=== PATIENT | male | born 1970 | race Caucasian/White ===

== ENCOUNTER 2016-07-17 17:55 | Emergency (ER) | payer OTHER ==
[~2016-07-17] VITALS: Ht 177.8 cm; Wt 143.9 kg
[~2016-07-17 17:55] MED LIST: CELEBREX200 MG PO; DIAMOX SEQUELS500 MG PO; ERGOCALCIF50000 UNIT PO; FLEXERIL10 MG PO; LEVO-T50 MCG PO; NEXIUM40 MG PO; PERCOCET 7.51 TABLET PO; PHENTERMINE H37.5 MG PO; TESTOSTERO100 MG/11 IM; VITAMIN D250000 UNIT PO
[2016-07-17 19:07] LABS: HEMATOCRIT 42.8 % (38.0-50.0); MCH 29.2 PG (29.0-34.0); MCHC 34.8 G/DL (30.0-36.0); MCV 83.8 FL (86-99); MEAN PLAT.VOLUME 9.8 uM^3 (9.0-12.4); PLATELET COUNT 263 K/uL (156-360); RBC DIS.WIDTH-CV 12.9 % (11.8-14.6); RBC DIS.WIDTH-SD 38.3 % (39-53); RED BLOOD COUNT 5.11 M/uL (4.00-5.50); WHITE BLOOD COUNT 11.7 K/uL (4.1-10.2)
[2016-07-17 19:17] LABS: CHLORIDE 109 mEq/L (99-109); POTASSIUM 3.8 mEq/L (3.7-5.4); SODIUM 140 mEq/L (136-147)
[2016-07-17 19:19] LABS: GLUCOSE 99 mg/dL (70-99)
[2016-07-17 19:20] LABS: ANION GAP 10 MEQ/L (2-14)
[2016-07-17 19:21] LABS: TOTAL BILIRUBIN 0.3 mg/dL (0.0-1.0)
[2016-07-17 19:23] LABS: ALKALINE PHOSPHATASE 94 IU/L (3-129); GFR ESTIMATE (CALCULATED) > 59 mL/min/
[2016-07-17 19:24] LABS: UREA NITROGEN (BUN) 21 mg/dL (9-23)
[2016-07-17 20:54] LABS: ADD MIUA? NO; BILIRUBIN NEGATIVE; BLOOD NEGATIVE; COLOR YELLOW ((YELLOW)); GLUCOSE (STRIP) NEGATIVE; KETONES NEGATIVE; LEUKOCYTES NEGATIVE; NITRITE NEGATIVE; PROTEIN (STRIP) NEGATIVE; SPECIFIC GRAVITY 1.031 (1.000-1.030); UCUL ADDED? NO; UROBILINOGEN 0.2 MG/DL (0.2-1.0)
[2016-07-17] MEDS ORDERED: ZOFRAN ODT4 MG PO (23:55)
[2016-07-18 00:23] VITALS: BP 126/70
== END 2016-07-18 00:24 | disposition home or self-care (01) ==
LOC: EME 17:55 → RME 17:55
DX: K42.9 Umbilical hernia without obstruction or gangrene (principal); R10.9 Unspecified abdominal pain; R11.2 Nausea with vomiting, unspecified; R19.4 Change in bowel habit; K40.20 Bilateral inguinal hernia, without obstruction or gangrene, not specified as recurrent
CPT/HCPCS: 74177; 80053; 81003; 85027; 99281; 99285; J2270; J2405; J7030

== ENCOUNTER 2017-06-25 22:02 | Observation (INO) | payer OTHER ==
[~2017-06-25] VITALS: Ht 177.8 cm; Wt 135.6 kg
[~2017-06-25 22:02] MED LIST changes: +ZOFRAN ODT4 MG PO
[2017-06-25 23:12] LABS: HEMATOCRIT 40.2 % (38.0-50.0); MCH 29.8 PG (29.0-34.0); MCHC 34.8 G/DL (30.0-36.0); MCV 85.5 FL (86-99); PLATELET COUNT 210 K/uL (156-360); RBC DIS.WIDTH-SD 37.7 % (39-53)
[2017-06-25 23:21] LABS: ALBUMIN 3.7 g/dL (3.2-4.8); CHLORIDE 110 mEq/L (99-109); POTASSIUM 3.8 mEq/L (3.7-5.4); SODIUM 136 mEq/L (136-147)
[2017-06-25 23:23] LABS: GLUCOSE 111 mg/dL (70-99); TOTAL PROTEIN 7.3 g/dL (6.4-8.3)
[2017-06-25 23:25] LABS: TOTAL BILIRUBIN 0.4 mg/dL (0.0-1.0)
[2017-06-25 23:27] LABS: ALKALINE PHOSPHATASE 95 IU/L (3-129); CREATININE 1.4 mg/dL (0.6-1.3); GFR ESTIMATE (CALCULATED) 59 mL/min/ (58.99-99999)
[2017-06-25 23:28] LABS: UREA NITROGEN (BUN) 21 mg/dL (9-23)
[2017-06-25 23:29] LABS: AST (GOT) 21 IU/L (2-34)
[2017-06-25 23:30] LABS: ALT (GPT) 27 IU/L (3-49); LIPASE 13 U/L (1.0-51.0)
[2017-06-25 23:57] LABS: APPEARANCE CLEAR ((CLEAR)); BILIRUBIN NEGATIVE; BLOOD MODERATE; COLOR YELLOW ((YELLOW)); GLUCOSE (STRIP) NEGATIVE; KETONES NEGATIVE; LEUKOCYTES NEGATIVE; NITRITE NEGATIVE; PROTEIN (STRIP) NEGATIVE; SPECIFIC GRAVITY 1.014 (1.000-1.030); UROBILINOGEN 0.2 MG/DL (0.2-1.0)
[2017-06-26 00:08] LABS: UCUL ADDED? NO
[2017-06-26] MEDS ORDERED: ZOFRAN4 MG PO (00:17)
[2017-06-26] MEDS ORDERED: PERCOCET 5/31 TABLET PO (00:17)
[2017-06-26] MEDS ORDERED: FLOMAX0.4 MG PO (00:17)
[2017-06-26] MEDS ORDERED: BACTRIM,SEPT1 TABLET PO (01:29)
[2017-06-26] MEDS ORDERED: TRAMADOL HCL50 MG PO (01:31)
[2017-06-26 05:11] VITALS: BP 142/89
[2017-06-26 05:54] LABS: HEMOGLOBIN 13.4 G/DL (12.5-16.6); MCH 28.9 PG (29.0-34.0); MCHC 33.5 G/DL (30.0-36.0); MCV 86.4 FL (86-99); PLATELET COUNT 218 K/uL (156-360); RBC DIS.WIDTH-SD 38.2 % (39-53); RED BLOOD COUNT 4.63 M/uL (4.00-5.50); WHITE BLOOD COUNT 11.2 K/uL (4.1-10.2)
[2017-06-26 06:19] LABS: CHLORIDE 108 MEQ/L (99-109); CREATININE 1.8 MG/DL (0.6-1.3); GFR ESTIMATE (CALCULATED) 44 mL/min/ (58.99-99999); GLUCOSE 99 mg/dL (70-99); POTASSIUM 3.7 MEQ/L (3.7-5.4); SODIUM 136 MEQ/L (136-147); UREA NITROGEN (BUN) 25 mg/dL (9-23)
[2017-06-26 08:10] VITALS: BP 116/61
[2017-06-26 12:18] VITALS: BP 147/90
[2017-06-26 15:32] VITALS: BP 135/74
[2017-06-26 20:13] VITALS: BP 127/70
[2017-06-27 00:46] VITALS: BP 130/66
[2017-06-27 09:17] VITALS: BP 132/78
[2017-06-27 11:10] VITALS: BP 132/72
[2017-06-27 12:01] LABS: CHLORIDE 112 MEQ/L (99-109); GFR ESTIMATE (CALCULATED) > 59 mL/min/ (58.99-99999); GLUCOSE 125 mg/dL (70-99); POTASSIUM 3.9 MEQ/L (3.7-5.4); SODIUM 138 MEQ/L (136-147); UREA NITROGEN (BUN) 21 mg/dL (9-23)
[2017-06-27 12:02] LABS: CREATININE 1.3 MG/DL (0.6-1.3)
[2017-06-27] MEDS ORDERED: BACTRIM,SEPT1 TABLET PO (12:26)
[2017-06-27] MEDS ORDERED: PERCOCET 5/31 TABLET PO (12:27)
== END 2017-06-27 14:21 | disposition home or self-care (01) ==
LOC: EME → EDBD 22:02 → EDOF 06-26 03:24 → ENRESERV 06-26 03:25 → 5WEST 06-26 04:38 → ENPENDDIS 06-27 → 5WEST 06-27 14:21
PROVIDERS: Emergency Medicine; Hospitalist; Internal Medicine
PROC: BT1F1ZZ Fluoroscopy of Left Kidney, Ureter and Bladder using Low Osmolar Contrast (ICD-10-PCS; principal; 2017-06-26)
PROC: 0T778DZ Dilation of Left Ureter with Intraluminal Device, Via Natural or Artificial Opening Endoscopic (ICD-10-PCS; principal; 2017-06-26)
DX: N13.2 Hydronephrosis with renal and ureteral calculous obstruction (principal); N17.9 Acute kidney failure, unspecified; G47.33 Obstructive sleep apnea (adult) (pediatric); E66.01 Morbid (severe) obesity due to excess calories; Z68.41 Body mass index [BMI] 40.0-44.9, adult; K21.9 Gastro-esophageal reflux disease without esophagitis; D72.829 Elevated white blood cell count, unspecified; E29.1 Testicular hypofunction; Z83.3 Family history of diabetes mellitus
CPT/HCPCS: 74176; 74420; 80048; 80053; 81003; 83690; 85027; 87040; 99281; 99285; C1758; C1769; C2625; G0378; J0330; J0696; J0744; J1100; J1170; J1644; J1885; J2250; J2270; J2405; J2765; J3010; J7030; J7120

== ENCOUNTER 2017-10-28 02:32 | Emergency (ER) | payer OTHER ==
[~2017-10-28] VITALS: Ht 177.8 cm; Wt 150.5 kg
[~2017-10-28 02:32] MED LIST changes: +BACTRIM,SEPT1 TABLET PO; +FLOMAX0.4 MG PO; +PERCOCET 5/31 TABLET PO; +TRAMADOL HCL50 MG PO; +ZOFRAN4 MG PO
[2017-10-28 03:42] LABS: MCH 30.3 PG (29.0-34.0); MCV 86.6 FL (86-99); PLATELET COUNT 225 K/uL (156-360); RBC DIS.WIDTH-CV 11.9 % (11.8-14.6); RBC DIS.WIDTH-SD 37.6 % (39-53); RED BLOOD COUNT 4.62 M/uL (4.00-5.50); WHITE BLOOD COUNT 10.8 K/uL (4.1-10.2)
[2017-10-28 03:45] LABS: CARBON DIOXIDE (BICARBONATE) 29.8 MEQ/L (20-31); VENOUS PCO2 49 mm Hg (41-51)
[2017-10-28 03:49] LABS: CHLORIDE 102 mEq/L (99-109); SODIUM 138 mEq/L (136-147)
[2017-10-28 03:50] LABS: GLUCOSE 106 mg/dL (70-99)
[2017-10-28 03:54] LABS: CREATININE 0.9 mg/dL (0.6-1.3); GFR ESTIMATE (CALCULATED) > 59 mL/min/ (58.99-99999)
[2017-10-28 03:55] LABS: UREA NITROGEN (BUN) 19 mg/dL (9-23)
[2017-10-28 03:58] LABS: TROP-I INTERPRETATION NEGATIVE; TROPONIN-I < 0.01 ng/mL (0.0-0.30)
[2017-10-28 06:13] LABS: TROP-I INTERPRETATION NEGATIVE; TROPONIN-I 0.01 ng/mL (0.0-0.30)
[2017-10-28 06:25] VITALS: BP 145/92
== END 2017-10-28 06:26 | disposition home or self-care (01) ==
LOC: EME 02:32
PROVIDERS: Emergency Medicine
DX: Z77.29 Contact with and (suspected) exposure to other hazardous substances (principal); M94.0 Chondrocostal junction syndrome [Tietze]; K21.9 Gastro-esophageal reflux disease without esophagitis; G47.30 Sleep apnea, unspecified; Z79.891 Long term (current) use of opiate analgesic; Z87.438 Personal history of other diseases of male genital organs; Z88.8 Allergy status to other drugs, medicaments and biological substances
CPT/HCPCS: 71046; 80048; 82803; 82810; 84484; 85027; 93005; 99281; 99283; J1885